=== PATIENT | male | born 1995 | race Caucasian/White ===

== ENCOUNTER 2022-01-06 00:08 | Emergency (ER) | payer SELFPAY ==
[~2022-01-06] VITALS: Ht 170.2 cm; Wt 104.3 kg
[2022-01-06 00:20] VITALS: BP_SYST 138
--- NOTE | 2022-01-06 00:20 | NUR ---
Patient triaged and placed in the tent. VSS and patient appears in no acute distress at this time. Awaiting available bed, and MD notified of need for MSE. Report given to Cheikh CONTI
[2022-01-06] MEDS ORDERED: ALBUTEROL SULFATE 0.083% 2.5 MG/3 ML VIAL.NEB INH ONE ×2 (02:45)
--- NOTE | 2022-01-06 02:53 | NUR ---
Pt receiving breathing treatment at this time. Covid and influenza swabs walked to lab.
[2022-01-06] MEDS ORDERED: ROBAC PO (03:16)
[2022-01-06] MEDS ORDERED: IBUP-1969 PO (03:16)
[2022-01-06] MEDS ORDERED: ALBMDI INH (03:16)
[2022-01-06] MEDS ORDERED: OSEL75CA PO (03:19)
[2022-01-06] MEDS ORDERED: DOXY100C PO (03:20)
[2022-01-06 03:47] VITALS: BP_SYST 120
--- NOTE | 2022-01-06 03:50 | NUR ---
Patient given written and verbal discharge instructions and verbalizes understanding. ER MD discussed with patient the results and treatment provided. Patient in stable condition. ID arm band removed. Rx of given. Patient educated on pain management and to follow up with PMD. Pain Scale 0/10. Opportunity for questions provided and answered. Medication side effect fact sheet provided.
== END 2022-01-06 03:47 | disposition home or self-care (01) ==
LOC: SED 00:08
DX: J18.9 Pneumonia, unspecified organism (principal); J11.1 Influenza due to unidentified influenza virus with other respiratory manifestations; J40 Bronchitis, not specified as acute or chronic; R07.89 Other chest pain; Z88.0 Allergy status to penicillin; Z79.899 Other long term (current) drug therapy; Z20.822 Contact with and (suspected) exposure to COVID-19
CPT/HCPCS: 94640; 99283; 87804 ×2; 87426; J7613; 36415

== ENCOUNTER 2024-03-13 06:39 | Emergency (ER) | payer SELFPAY ==
[~2024-03-13] VITALS: Ht 165.1 cm; Wt 113.4 kg
[~2024-03-13 06:39] MED LIST: ALBMDI INH; DOXY100C PO; IBUP-1969 PO; OSEL75CA PO; ROBAC PO
[2024-03-13 06:41] VITALS: BP_SYST 129; PULSE 80; RESP 16; TEMP 96.6; O2SAT 96
[2024-03-13] MEDS ORDERED: PRED20TA PO (07:17)
[2024-03-13] MEDS ORDERED: ALBMDI INH (07:17)
[2024-03-13 07:24] VITALS: BP_SYST 112; PULSE 89; RESP 16
[2024-03-13] MEDS: IPRATROPIUM BROM 0.5 MG/2.5 ML VIAL.NEB (ATROVENT) INH ONE (07:29)
[2024-03-13] MEDS: ALBUTEROL SULFATE 0.083% 2.5 MG/3 ML VIAL.NEB INH ONE (07:29)
[2024-03-13] MEDS: predniSONE 20 MG TABLET PO ONE (07:42)
[2024-03-13 07:51] VITALS: O2SAT 98
== END 2024-03-13 07:47 | disposition home or self-care (01) ==
LOC: SED 06:39
DX: J45.901 Unspecified asthma with (acute) exacerbation (principal); R07.89 Other chest pain; Z88.0 Allergy status to penicillin; Z79.899 Other long term (current) drug therapy; Z79.2 Long term (current) use of antibiotics
CPT/HCPCS: 99283; 94640; J7512